=== PATIENT | male | born 1995 | race Caucasian/White ===

== ENCOUNTER 2016-09-27 21:03 | Emergency (ER) | payer OTHER ==
[~2016-09-27] VITALS: Ht 185.4 cm; Wt 90.0 kg
[2016-09-27 21:31] VITALS: BP 118/76; PULSE 71; RESP 16; O2SAT 97
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
[2016-09-27 23:25] VITALS: BP 117/64; PULSE 82; RESP 14; O2SAT 97
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
== END 2016-09-27 23:26 | disposition home or self-care (01) ==
LOC: SED 21:03
DX: S16.1XXA Strain of muscle, fascia and tendon at neck level, initial encounter (principal); V43.52XA Car driver injured in collision with other type car in traffic accident, initial encounter; Y93.89 Activity, other specified; Y92.410 Unspecified street and highway as the place of occurrence of the external cause; Y99.8 Other external cause status